=== PATIENT | male | born 1940 | race Caucasian/White ===

== ENCOUNTER 2018-07-30 05:29 | Day surgery (SDC) | payer MEDICARE, OTHER ==
[~2018-07-30] VITALS: Ht 190.5 cm; Wt 86.4 kg
[~2018-07-30 05:29] MED LIST: BAYER CHEWABLE81 MG PO; COREG 3.1253.125 MG GT; CRESTOR40 MG PO; HYDROCODONE-APA1 TAB PO; LOVAZA1 G PO; NEXIUM40 MG PO; ZOCOR80 MG PO
[2018-07-30 05:52] LABS: HEMATOCRIT 39.9 % (42.0-54.0); HEMOGLOBIN 13.6 g/dL (13.5-17.5); MCH 31.3 pg (26.0-34.0); MCHC 34.1 g/dL (31.0-37.0); MCV 91.9 fL (80.0-100.0); MEAN PLATELET VOLUME 10.9 fL (7.4-10.4); RBC 4.34 10x6/uL (4.20-6.10); RDW 13.2 % (11.5-14.5); WBC 6.5 10x3/uL (4.8-10.8)
[2018-07-30 06:36] VITALS: BP 130/66; Ht 190.5 cm; Wt 86.4 kg
--- NOTE | 2018-07-30 08:17 | NUR ---
0815 FL DIET SERVED
--- NOTE | 2018-08-02 11:34 | OP ---
PATIENT NAME: TEAGAN GIBSON MEDICAL RECORD: [id number] :38 LOCATION:D.OPS ADMISSION DATE: SURGEON: NAHUM ARECHIGA MD DATE OF OPERATION: 07/30/2018 PREOPERATIVE DIAGNOSES: 1. Osteoarthritis of the right hip. 2. Trochanteric bursitis of the right hip. POSTOPERATIVE DIAGNOSES: 1. Osteoarthritis of the right hip. 2. Trochanteric bursitis of the right hip. PROCEDURES: 1. Injection under fluoroscopy of the right hip. 2. Injection under fluoroscopy of the right trochanteric bursa. SURGEON: Nahum Arechiga MD ANESTHESIA: TIVA. INTRAOPERATIVE COMPLICATIONS: None. SUMMARY OF PATHOLOGIC FINDINGS: Consistent with the preoperative diagnosis, fluoroscopy did show the patient to have [id number] arthritis of the right hip and the examination did show the patient to have a bursal pain. OPERATIVE SUMMARY IN DETAIL: After obtaining the appropriate preoperative orthopedic surgery consent as well as anesthetic consultation, evaluation and clearance, and doing the appropriate time-out and all agreed, the patient was given TIVA anesthesia. The right hip and trochanteric area were prepped and draped in routine sterile fashion. Under direct fluoroscopic visualization, an 18-gauge spinal needle was directed into the hip capsule. Small amount of Isovue was utilized to be sure that the needle was in appropriate position and then 80 mg of Depo-Medrol and 3 cc of 0.25% Marcaine with epinephrine were injected directly into the hip. Having completed this, the needle tip was withdrawn. Bandage was applied. Attention was then turned to the trochanteric bursa. Again under fluoroscopic visualization, the lateral aspect of the trochanter was visualized and a separate spinal needle was placed in the area and again another 80 mg of Depo-Medrol with 3 cc of 0.25% Marcaine with epinephrine were injected in a circumferential pattern over the entire trochanteric bursa. Having completed this, a bandage was applied. The patient was awakened and taken to the recovery room in stable condition. All final needle and sponge counts were correct. TRANSINT:[id number] Voice Confirmation ID: [id number] DOCUMENT ID: [id number] OPERATIVE REPORT [id number] TEAGAN GIBSON NAHUM ARECHIGA MD at 113 CC: [id number] DICTATION DATE: 08/01/18 1029 INTERNATIONAL LOGISTICS ANALYST: 08/01/18 1230 [facility] 07/30/18 [place] [id number] [place] [id number]
== END 2018-07-30 08:55 | disposition home or self-care (01) ==
LOC: D.OPS 05:29 → D.PAN 08:30 → D.OPS 08:30
PROVIDERS: Anesthesiology; ATTEND Orthopaedic Surgery
DX: M16.11 Unilateral primary osteoarthritis, right hip (principal)

== ENCOUNTER → 2018-09-26 17:12 | Outpatient (CLI) | payer MEDICARE, OTHER ==
[2018-07-30 06:36] VITALS: BMI 23.7
== END | disposition home or self-care (01) ==
LOC: D.LABREF 17:12
PROVIDERS: ATTEND Orthopaedic Surgery
DX: M16.11 Unilateral primary osteoarthritis, right hip (principal)

== ENCOUNTER 2018-09-27 11:14 | Inpatient (IN) | payer MEDICARE, OTHER ==
[~2018-09-27] VITALS: Ht 190.5 cm; Wt 86.0 kg
[2018-10-10 11:41] LABS: BASOPHILS 0.3 % (0-2); EOSINOPHILS 3.7 % (0-7); HEMOGLOBIN 14.2 g/dL (13.5-17.5); IMMATURE GRANULOCYTES 0.2 % (0-5); LYMPHOCYTES 26.2 % (15-50); MCH 31.9 pg (26.0-34.0); MCHC 34.6 g/dL (31.0-37.0); MCV 92.1 fL (80.0-100.0); MEAN PLATELET VOLUME 10.5 fL (7.4-10.4); MONOCYTES 9.5 % (2-11); NEUTROPHILS 60.1 % (40-80); PLATELET COUNT 163 10x3/uL (130-400); RBC 4.45 10x6/uL (4.20-6.10); RDW 13.3 % (11.5-14.5); WBC 9.2 10x3/uL (4.8-10.8)
[2018-10-10 11:51] LABS: ANION GAP 11.5 mmol/L (8-16); CALCIUM 9.2 mg/dL (8.5-10.1); CARBON DIOXIDE 26.9 mmol/L (21.0-32.0); CREATININE - SERUM 1.3 mg/dL (0.6-1.3); POTASSIUM - SERUM 4.4 mmol/L (3.5-5.1)
[2018-10-10 11:52] LABS: APTT 26.5 SECONDS (22.8-39.4); INR 1.05 (0.85-1.17); PROTIME 13.2 SECONDS (11.6-15.0)
[2018-10-10 11:56] LABS: APPEARANCE CLEAR (CLEAR); BILIRUBIN NEGATIVE (NEGATIVE); COLOR YELLOW (YELLOW); GLUCOSE NEGATIVE (NEGATIVE); KETONE NEGATIVE (NEGATIVE); NITRITE NEGATIVE (NEGATIVE); PROTEIN NEGATIVE (NEGATIVE); SPECIFIC GRAVITY 1.005 (1.005-1.020); UROBILINOGEN NORMAL (NORMAL)
[2018-10-15] VITALS (10 sets, daily range): BP systolic 91–142; BP diastolic 53–68; Ht 190.5 cm; Wt 86.0 kg
--- NOTE | 2018-10-15 06:58 | NUR ---
0306 CHRISTINE PEDROZA CRNA HERE TO EVALUATE PT FOR VISUAL COMPLAINTS. ANESTHESIA ASSESSMENT COMPLETED BY CHRISTINE. PT STATES "FLOATERS" ARE GONE. OK TO PROCEED TO SURGERY.
--- NOTE | 2018-10-15 08:03 | NUR ---
MICROBLADE SETTINGS 07/28 GROUNDING PAD #[id number] EXP. 05/29/2020 GROUNDED INSIDE LEFT THIGH
--- NOTE | 2018-10-15 10:15 | NUR ---
PATIENT TO ROOM AT THIS TIME. IV INTACT. VS STABLE. NO COMPLAINTS OR SIGNS OF DISTRESS. CALL LIGHT WITHIN REACH.
--- NOTE | 2018-10-15 10:15 | NUR ---
PATIENT TO ROOM WITH IV INTACT. DRESSING CDI. NO COMPLAINTS OR SIGNS OF DISTRESS. DOES HAVE SOME PAIN TO HIP. ICE PACK TO RIGHT HIP. SCDS ON AND WORKING. VS STABLE. CALL LIGHT WITHIN REACH.
--- NOTE | 2018-10-15 11:42 | NUR ---
PATIENT RECIEVED PAIN MEDS AT THIS TIME. IV INTACT. NO COMPLAINTS OR SIGNS OF DISTRESS. FAMILY AT BEDSIDE. CALL LIGHT WITHIN REACH.
--- NOTE | 2018-10-15 13:06 | NUR ---
PATIENT RECIEVED TORADOL FOR PAIN. BP LOWER FROM PAIN MEDS. NO SYMPTOMS OR PROBLEMS. WILL CONTINUE TO MONITOR. CALL LIGHT WITHIN REACH.
--- NOTE | 2018-10-15 15:00 | NUR ---
PATIENT IN BED WITH IV INTACT. NO COMPLAINTS OR SIGNS OF DISTRESS. FAMILY AT BEDSIDE. CALL LIGHT WITHIN REACH. VS STABLE.
--- NOTE | 2018-10-15 16:00 | NUR ---
GAVE PATIENT URINAL TO VOID. STATED HE DOESNT NEED TO YET BUT WILL WITH HELP FROM . FAMILY AT BEDSIDE. CALL LIGHT WITHIN REACH.
--- NOTE | 2018-10-15 16:30 | NUR ---
PATIENT IN BED WITH IV INTACT. NO COMPLAINTS OR SIGNS OF DISTRESS. BSCDS ON AND WORKING. FAMILY AT BEDSIDE. CALL LIGHT WITHIN REACH.
--- NOTE | 2018-10-15 17:04 | NUR ---
PATIENT RECIEVED PAIN MEDS AT THIS TIME. IV INTACT. CALL LIGHT WITHIN REACH.
--- NOTE | 2018-10-15 19:14 | NUR ---
PATIENT VOIDED SMALL AMOUNT. SAYS HE DOESNT FEEL THE URGE AND HAS NO FEELING TO VOID. EXPLAINED THAT IF HE FEELS LIKE HE NEEDS TO VOID AND CANT TO NOTIFY THE NURSE TO BLADDER SCAN. VERBALIZED UNDERSTANDING. IV INTACT. FAMILY AT BEDSIDE. CALL LIGHT WITHIN REACH.
[2018-10-16 00:17] VITALS: BP 108/56
--- NOTE | 2018-10-16 01:31 | NUR ---
PT RESTING IN BED. EYES CLOSED. NO SIGNS OF DSITRESS. BREATHING EVEN AND UNLABROED. IV SITE LT HAND DRESSING CLEAN DRY AND INTACT. NO SIGNS OF INFECTION. SKIN CLEAN DRY AND INTACT. BOWEL SOUNDS ACTIVE. DRESSING RT HIP CLEAN DRY AND INTACT. WILL CONTINUE PLAN OF CARE. CALL LIGHT IN REACH. BED LOWERED AND LOCKED. AT BEDSIDE. BED RAILS UPX2.
--- NOTE | 2018-10-16 02:50 | NUR ---
I have reviewed this patient and I concur with the Shift Assessment completed by the Licensed Practical Nurse today this shift.
[2018-10-16 04:42] VITALS: BP 97/57
[2018-10-16 05:41] LABS: HEMATOCRIT 30.6 % (42.0-54.0); HEMOGLOBIN 10.4 g/dL (13.5-17.5); MCH 30.9 pg (26.0-34.0); MCV 90.8 fL (80.0-100.0); MEAN PLATELET VOLUME 10.1 fL (7.4-10.4); RBC 3.37 10x6/uL (4.20-6.10); RDW 13.3 % (11.5-14.5); WBC 10.2 10x3/uL (4.8-10.8)
[2018-10-16 08:06] VITALS: BP 105/57
--- NOTE | 2018-10-16 08:59 | NUR ---
PT ALERT X 4. BREATH SOUNDS CLEAR BILAT. IV TO LEFT HAND, SALINE LOCKED. PT REPORTING PAIN OF 3/10, MEDICATED PER ORDERS, WILL MONITOR. DRESSING TO RIGHT HIP CDI. SCD'S IN USE. BED LOW, CALL LIGHT IN REACH. NO OTHER NEEDS AT THI TIME.
[2018-10-16 14:15] VITALS: BP 97/58
[2018-10-16 15:47] VITALS: BP 100/52
[2018-10-16 21:37] VITALS: BP 103/59
--- NOTE | 2018-10-17 00:26 | NUR ---
REC' AT [facility] OF SHIFT WALKING ROUNDS IN BED. AT BEDSIDE.DRSG TO RIGHT HIP DRY AND INTACT FOOT PINK AND WARM PEDAL PULSE PRESENT DENIES PAIN BLOCK REMAINS IN EFFECT.WILL CONTINUE TO MONITOR FOR ANY CHGES. IN NEUROVASCULAR STATUS AND FOLLOW CURRENT PLAN OF CARE.
--- NOTE | 2018-10-17 04:58 | NUR ---
I have reviewed this patient and I concur with the Shift Assessment completed by the Licensed Practical Nurse today this shift.
[2018-10-17 05:16] VITALS: BP 100/55
[2018-10-17 06:52] LABS: HEMATOCRIT 27.8 % (42.0-54.0); HEMOGLOBIN 9.6 g/dL (13.5-17.5); MCH 31.6 pg (26.0-34.0); MCHC 34.5 g/dL (31.0-37.0); MCV 91.4 fL (80.0-100.0); MEAN PLATELET VOLUME 10.5 fL (7.4-10.4); RBC 3.04 10x6/uL (4.20-6.10); RDW 13.3 % (11.5-14.5); WBC 9.7 10x3/uL (4.8-10.8)
[2018-10-17 08:16] VITALS: BP 104/60
--- NOTE | 2018-10-17 08:30 | NUR ---
PT RESTING IN BED WITH SPOUSE AT BEDSIDE. NO ACUTE DISTRESS NOTED. PT REPORTS PAIN 2/10 AT THIS TIME. DRESSING C/D/I TO RIGHT HIP. SCD'S ON TO BILAT LOWER EXTREMITY. DENIES FURTHER NEEDS AT THIS TIME. CL WITHIN REACH. ENCOURAGED TO CALL WITH NEEDS. CONTINUE POC
[2018-10-17] MEDS ORDERED: ELIQUIS2.5 MG PO (09:14)
[2018-10-17] MEDS ORDERED: HYDROCODON-ACE1 EA10 PO (09:15)
[2018-10-17 12:34] VITALS: BP 107/63
--- NOTE | 2018-10-17 13:15 | MORECARE ---
CASE MANAGEMENT DISCHARGE SUMMARY PATIENT: TEAGAN GIBSON UNIT: [id number] ADM DATE: 10/15/18 AGE: 78 : 39 SEX: M ROOM/BED: D.2208 AUTHOR: REGIS,DOC PHYSICIAN: REFERRING PHYSICIAN: NAHUM ARECHIGA MD DATE OF SERVICE: 10/17/18 Discharge Plan Patient Name: TEAGAN GIBSON Facility: [facility]:[place] : 1940 Planned Disposition: Home Health Service Anticipated Discharge Date: Discharge Date: Expected LOS: Initial Reviewer: [email or web address] Initial Review Date: 10/15/2018 Generated: 10/17/18 2:15 pm Comments DCP- Discharge Planning Updated by [email or web address]: Carli Jean on 10/17/18 12:[address] Patient Name: TEAGAN GIBSON Admission Status: Urgent Accout number: [id number] Admission Date: 10-15-2018 : 1940 Admission Diagnosis: Attending: NAHUM ARECHIGA Current LOS: 2 Anticipated DC Date: Planned Disposition: Home Health Service Primary Insurance: MEDICARE A & B Discharge Planning Comments: CM met with patient to complete initial dc planning assessment. CM educated patient on the CM role and verbal consent given by patient to complete assessment. Patient lives at home with his where he is independent with his care. At discharge patient plans to return home and feels this is a safe discharge. CM discussed availability of home health, rehab services, and medical equipment. He has a walker and BSC at home and would like to use [facility] when discharged. I called and referral sent to [facility]. Patient denied known discharge needs at this time. CM will continue to follow and will assist as needed with dc plans/needs. Print Production Associate: Carli Jean DCPIA - Discharge Planning Initial Assessment Updated by [email or web address]: Carli Jean on 10/17/18 1:12 pm * Is the patient Alert and Oriented? Yes * How many steps to enter\exit or inside your home? * PCP DASHAWN * [facility] * Preadmission Environment Home with Family * ADLs Independent * Equipment Bedside Commode Rolling Walker * List name and contact numbers for known caregivers / representatives who currently or will assist patient after discharge: DOROTHY /BRODIE [phone]/ [phone] * Verbal permission to speak to the caregivers and representatives has been obtained from the patient. Yes * Community resources currently utilized None * Additional services required to return to the preadmission environment? Yes * Can the patient safely return to the preadmission environment? Yes * Has this patient been hospitalized within the prior 30 days at any hospital? No Patient Name: TEAGAN GIBSON Page [id number] at 1315 All edits/amendments must be made on the electronic document DICTATION DATE: 10/17/18 1315 SUPERVISOR FRAME SAMPLE AND PATTERN: RIGO 10/17/18 1315 RPT#: [id number] DC DATE: STATUS: ADM IN [facility] [address] [place] [address] END OF REPORT
--- NOTE | 2018-10-17 13:24 | MORECARE ---
CASE MANAGEMENT DISCHARGE SUMMARY PATIENT: TEAGAN GIBSON UNIT: [id number] ADM DATE: 10/15/18 AGE: 78 : 39 SEX: M ROOM/BED: D.2208 AUTHOR: REGIS,DOC PHYSICIAN: REFERRING PHYSICIAN: NAHUM ARECHIGA MD DATE OF SERVICE: 10/17/18 Discharge Plan Patient Name: TEAGAN GIBSON Facility: [facility]:[place] : 1940 Planned Disposition: Home Health Service Anticipated Discharge Date: Discharge Date: Expected LOS: Initial Reviewer: [email or web address] Initial Review Date: 10/15/2018 Generated: 10/17/18 2:24 pm Comments DCP- Discharge Planning Updated by [email or web address]: Carli Jean on 10/17/18 12:[address] Patient Name: TEAGAN GIBSON Admission Status: Urgent Accout number: [id number] Admission Date: 10-15-2018 : 1940 Admission Diagnosis: Attending: NAHUM ARECHIGA Current LOS: 2 Anticipated DC Date: Planned Disposition: Home Health Service Primary Insurance: MEDICARE A & B Discharge Planning Comments: CM met with patient to complete initial dc planning assessment. CM educated patient on the CM role and verbal consent given by patient to complete assessment. Patient lives at home with his where he is independent with his care. At discharge patient plans to return home and feels this is a safe discharge. CM discussed availability of home health, rehab services, and medical equipment. He has a walker and BSC at home and would like to use [facility] when discharged. I called and referral sent to [facility]. Patient denied known discharge needs at this time. CM will continue to follow and will assist as needed with dc plans/needs. Smoking Pipe Repairer: Carli Jean DCPIA - Discharge Planning Initial Assessment Updated by [id number]: Carli Jean on 10/17/18 1:12 pm * Is the patient Alert and Oriented? Yes * How many steps to enter\exit or inside your home? * PCP DASHAWN * [facility] * Preadmission Environment Home with Family * ADLs Independent * Equipment Bedside Commode Rolling Walker * List name and contact numbers for known caregivers / representatives who currently or will assist patient after discharge: DOROTHY /BRODIE [phone]/ [phone] * Verbal permission to speak to the caregivers and representatives has been obtained from the patient. Yes * Community resources currently utilized None * Additional services required to return to the preadmission environment? Yes * Can the patient safely return to the preadmission environment? Yes * Has this patient been hospitalized within the prior 30 days at any hospital? No External Providers External Provider: [facility] Next Contact Date: Service Request Date: Service Type: Resolution: Reviewer: Comments: Coverage Notice Reviewer: [email or web address] Stanislaw Jean Notice Issued Date-Time: 10/17/2018 7:30 Notice Type: Patient Choice Letter Notice Delivered To: Patient Relationship to Patient: Program Lead Name: Delivery Method: HAND - Hand Delivered Jocelin Days: Prior Verbal Notification: Recipient Understood Notice: Yes Recipient Signature: Yes Med Rec Note Co-signed by Attending: Coverage Notice Comment: mirella with elite Last DP export: 10/17/18 12:15 p Patient Name: TEAGAN GIBSON Page [phone] at 1324 All edits/amendments must be made on the electronic document DICTATION DATE: 10/17/18 1324 CONSTRUCTION PROJECT MANAGER: RIGO 10/17/18 1324 RPT#: [id number] DC DATE: STATUS: ADM IN [facility] [address] [place] [address] END OF REPORT
--- NOTE | 2018-10-17 15:05 | NUR ---
PT DC PAPERWORK PROVIDED. DISCUSSED POST OP AFTER CARE AND S/S TO MONITOR FOR FOR INFECTION. DRESSING CHANGED TO RIGHT HIP. TOMASA INTACT. EDGES WELL APPROXIMATED. NO REDNESS OR DRAINAGE AT THIS TIME. APPLIED MEPILEX AG TO SITE. PT AND SPOUSE DENY FURTHER QUESTIONS AT THIS TIME. PT TAKEN OUT VIA W/C TO PRIVATE VEHICLE WITH ALL PERSONAL BELONGINGS FOR D/C.
--- NOTE | 2018-10-18 12:14 | OP ---
PATIENT NAME: TEAGAN GIBSON MEDICAL RECORD: [id number] :38 LOCATION:D.MS [id number] ADMISSION DATE:10/15/18 SURGEON: NAHUM ARECHIGA MD DATE OF OPERATION: 10/15/2018 PREOPERATIVE DIAGNOSIS: Severe osteoarthritis, right hip. POSTOPERATIVE DIAGNOSIS: Severe osteoarthritis, right hip. PROCEDURE: Right total hip arthroplasty. SURGEON: Nahum Arechiga MD ANESTHESIA: General. NETWORK SECURITY OFFICER: Morteza Lima APN INTRAOPERATIVE COMPLICATIONS: Medial wall fracture and ilium fracture. IMPLANTS USED: Size 6 Accolade II, size 60 Trident 2 cup polyethylene insert, alpha code G0 degree, 3 screws, +4 offset with a 40 mm anatomic universal taper, femoral head -- ceramic. ESTIMATED BLOOD LOSS: 200 cc. OPERATIVE SUMMARY IN DETAIL: After obtaining the appropriate preoperative orthopedic surgery consent as well as anesthetic consultation, evaluation and clearance, the patient was brought to the operating room and placed on the operating table in supine position. After general laryngeal mask airway was administered, the patient was placed in a left lateral decubitus position. All pressure points were well padded to include down leg peroneal pad as well as axillary roll. The patient was held firmly to the operating table using the vacuum pack suction system. Right lower extremity and hip were then prepped and draped in routine sterile fashion. Curvilinear incision made over the greater trochanter, taken down to the level of the IT band, which was split in line with fibers of the IT band to reveal the gluteus medius minimus attached to the greater trochanter. These were reflected anteriorly. The capsule was split in a T-type fashion. Hip was dislocated. Femoral neck cut was made using the femoral neck cutting guide. Attention then turned to the acetabulum. After circumferential removal of the frayed labrum, serial and sequential reaming was done to a size 60 for a size 60 cup. The cup was put into place and after good capture of the cup, it was noted that the patient had a small fracture of the medial inner table as well as a small fracture of the lateral aspect of the ramus. The medial radiographs were taken and showed that the cup was in good position. The fracture had not propagated. For this reason, the surgery was continued. 3 screws were then placed in the cup, 1 superior and 2 posterior superior with excellent fixation. The cup was again checked for overall stability. The small area of fracture was filled with a small hydroxyapatite. Polyethylene was then put into place and the attention was turned to the proximal femur. Sequential reaming and broaching were done for a size 6 TMZF coated Accolade II stem, which was put into place. Trials were undertaken and it was felt that the +4 trial was the most appropriate. X-rays were taken at this point with the trial in place to show good limb length equality. This was then removed and the final component was tamped into place on the Lewis taper. The hip was reduced and again good limb length equality was noted. The wound OPERATIVE REPORT [id number] PAIGE,TEAGAN Escalera was copiously irrigated and filled with tobramycin, vancomycin. Hip capsule was closed with #2 Ethibond followed by reapproximation of the gluteus medius minimus back to the greater trochanter in a transosseous fashion using #5 Ethibond. IT band was then closed with 2-0 Ethibond by Joshua Lima followed by #1 Vicryl, 2-0 Vicryl and skin robin also by Joshua Lima. Sterile dressings were applied. The patient was awakened and taken to the recovery room in stable condition. All final needle and sponge counts were correct. TRANSINT:[id number] Voice Confirmation ID: [id number] DOCUMENT ID: [id number] 10/18/2018 Edited for bore mill operator for plastic error, luisito. HAWK RUBIN, NAHUM MENDENHALL at 1214 CC: [id number] DICTATION DATE: 10/16/18 1617 FABRIC COATING SUPERVISOR: 10/16/18 1754 DIS IN 10/17/18 [place] [id number] [place] [address]
--- NOTE | 2018-10-20 12:08 | MORECARE ---
CASE MANAGEMENT DISCHARGE SUMMARY PATIENT: TEAGAN GIBSON UNIT: [id number] ADM DATE: 10/15/18 AGE: 78 : 39 SEX: M ROOM/BED: D.2208 AUTHOR: REGIS,DOC PHYSICIAN: REFERRING PHYSICIAN: NAHUM ARECHIGA MD DATE OF SERVICE: 10/20/18 Discharge Plan Patient Name: TEAGAN GIBSON Facility: [facility]:[place] : 1940 Planned Disposition: Home Health Service Anticipated Discharge Date: Discharge Date: 10/17/2018 Expected LOS: Initial Reviewer: [email or web address] Initial Review Date: 10/15/2018 Generated: 10/20/18 1:07 pm Comments DCP- Discharge Planning Updated by [email or web address]: Carli Jean on 10/17/18 12:[address] Patient Name: TEAGAN GIBSON Admission Status: Urgent Accout number: [id number] Admission Date: 10-15-2018 : 1940 Admission Diagnosis: Attending: NAHUM ARECHIGA Current LOS: 2 Anticipated DC Date: Planned Disposition: Home Health Service Primary Insurance: MEDICARE A & B Discharge Planning Comments: CM met with patient to complete initial dc planning assessment. CM educated patient on the CM role and verbal consent given by patient to complete assessment. Patient lives at home with his where he is independent with his care. At discharge patient plans to return home and feels this is a safe discharge. CM discussed availability of home health, rehab services, and medical equipment. He has a walker and BSC at home and would like to use [facility] when discharged. I called and referral sent to [facility]. Patient denied known discharge needs at this time. CM will continue to follow and will assist as needed with dc plans/needs. Lean Consultant: Carli Jean DCPIA - Discharge Planning Initial Assessment Updated by [email or web address]: Carli Jean on 10/17/18 1:12 pm * Is the patient Alert and Oriented? Yes * How many steps to enter\exit or inside your home? * PCP DASHAWN * [facility] * Preadmission Environment Home with Family * ADLs Independent * Equipment Bedside Commode Rolling Walker * List name and contact numbers for known caregivers / representatives who currently or will assist patient after discharge: DOROTHY /BRODIE [phone]/ [phone] * Verbal permission to speak to the caregivers and representatives has been obtained from the patient. Yes * Community resources currently utilized None * Additional services required to return to the preadmission environment? Yes * Can the patient safely return to the preadmission environment? Yes * Has this patient been hospitalized within the prior 30 days at any hospital? No Coverage Notice Reviewer: [email or web address] Stanislaw Jean Notice Issued Date-Time: 10/17/2018 7:30 Notice Type: Patient Choice Letter Notice Delivered To: Patient Relationship to Patient: Electronic Assembler Name: Delivery Method: HAND - Hand Delivered Jocelin Days: Prior Verbal Notification: Recipient Understood Notice: Yes Recipient Signature: Yes Med Rec Note Co-signed by Attending: Coverage Notice Comment: mirella with ana Breen DP export: 10/17/18 12:24 p Patient Name: TEAGAN GIBSON Page [phone] at 1208 All edits/amendments must be made on the electronic document DICTATION DATE: 10/20/18 1207 DENTAL OFFICE ASSISTANT: RIGO 10/20/18 1207 RPT#: [id number] DC DATE:10/17/18 STATUS: DIS IN [facility] [address] [place] [address] END OF REPORT
== END 2018-10-17 15:39 | disposition home health service (06) | DRG 470 ==
LOC: D.SDCHOLD 10-10 10:00 → D.MS 10-15 05:25 → D.SDCHOLD 10-15 07:30 → D.MS 10-15 09:51 → D.SDCHOLD 10-15 10:00 → D.MS 10-17 15:39
PROVIDERS: ADMIT Orthopaedic Surgery; ATTEND Orthopaedic Surgery
PROC: 0SR90J9 Replacement of Right Hip Joint with Synthetic Substitute, Cemented, Open Approach (ICD-10-PCS; principal; 2018-10-15 07:30)
DX: M16.11 Unilateral primary osteoarthritis, right hip (principal); D62 Acute posthemorrhagic anemia

== ENCOUNTER → 2019-01-31 15:18 | Outpatient (CLI) | payer MEDICARE, OTHER ==
[2018-10-15 16:04] VITALS: BMI 23.6
[~2019-01-31 15:18] MED LIST changes: +ELIQUIS2.5 MG PO; +HYDROCODON-ACE1 EA10 PO
== END | disposition home or self-care (01) ==
LOC: D.CT 15:18
PROVIDERS: ATTEND Orthopaedic Surgery
DX: M25.551 Pain in right hip (principal)